=== PATIENT | female | born 1945 | race American Indian/Alaskan Native ===

== ENCOUNTER 2018-08-09 10:37 | Outpatient (CLI) | payer MEDICARE ==
--- NOTE | 2018-08-09 11:07 | Mammography Report ---
BONE DENSITY STUDY: Postmenopausal screening. DEFINITIONS: BMD = Bone Mineral Density T-score = BMD related to mean peak bone mass of young adult (mean expressed in Standard Deviation) Z-score = Age matched BMD expressed in SD World Health Organization (WHO) Diagnostic Criteria Normal T-score > -1 SD Osteopenia T-score between -1 and -2.4 SD Osteoporosis T-score -2.5 SD or below FINDINGS: The weighted average BMD of lumbar spine L1-L3 is 0.995 with a T-score of -1.1. The weighted average BMD of the left hip is 0.965 with a T-score of -0.4. The femoral neck BMD is 0.739 with a T. value score of -1.5. IMPRESSION: The patient's average T-score is diagnostic for osteopenia and average relative risk for fracture. NOTE: BMD is not the only risk factor for fracture; also consider factors such as the patient's age, risk of falling, previous osteoporotic fracture, family history of osteoporotic fractures, current smoker, and low body weight. Bustamante's triangle is a region of interest in femur, predominantly of trabecular bone. It is not a true anatomic site, and [facility] does not recommend its use clinically.
== END 2018-08-09 10:38 | disposition home or self-care (01) ==
LOC: SPVWC 10:37
PROVIDERS: ATTEND Family Medicine
DX: Z13.820 Encounter for screening for osteoporosis (principal); M85.88 Other specified disorders of bone density and structure, other site; Z78.0 Asymptomatic menopausal state
CPT/HCPCS: 77080

== ENCOUNTER 2020-08-26 11:02 | Outpatient (CLI) | payer MEDICARE ==
--- NOTE | 2020-09-01 08:20 | Mammography Report ---
DEXA BONE DENSITY SCAN INDICATION: OTH DISORDERS OF BONE DENSITY AND STRUCTURE, MULTIPLE SITES, postmenopausal female COMPARISON: 08/09/2018 LUMBAR SPINE (L1-L4): Bone mineral density (BMD) is 1.186 g/cm2. T-score is 0.3 (standard deviations of Young Adult mean). Z-score is 3.0 (standard deviations of Age Matched mean). LEFT FEMORAL NECK: Bone mineral density (BMD) is 0.788 g/cm2. T-score is -1.1 (standard deviations of Young Adult mean). Z-score is 0.4 (standard deviations of Age Matched mean). DENSITOMETRY TRENDS: Femoral neck mean change from previous study: Increase 6.6%. IMPRESSION: 1. WHO Classification: Osteopenia. Fracture Risk: Increased. Signer Name: Curly Harris MD Signed: 09/01/2020 8:16 AM Workstation Name: [id number]
== END 2020-08-26 11:03 | disposition home or self-care (01) ==
LOC: SPVWC 11:02
PROVIDERS: ATTEND Internal Medicine Hematology & Oncology
DX: M85.89 Other specified disorders of bone density and structure, multiple sites (principal); Z78.0 Asymptomatic menopausal state
CPT/HCPCS: 77080